=== PATIENT | female | born 1980 | race American Indian/Alaskan Native ===

== ENCOUNTER 2017-02-04 09:56 | Inpatient (IN) | payer MEDICAID ==
--- NOTE | 2017-02-03 14:01 | History and Physical Report ---
History of Present Illness Date of examination: 01/29/17 Date of admission: 02/04/17 Chief complaint: c/s and tl History of present illness: Pt presents for repeat c/s with TL. EDC Calculations LMP: 02/11/2017 EDC Confirmation: 02/11/2017 Gestational Age: 7 1/7 weeks Past History : 4 Term Births: 2 Premature Births: 0 Living Children: 2 Para: 2 Mult. Births: 0 Prev : 2 Prev. attempt? 0 Aborta: 1 Elect. Ab: 0 Spont. Ab: 0 Ectopics: 1 # 1 Delivery date: 2004 Weeks Gestation: 41+ labor: no Delivery type: Delivery location: [place] Sex: Male weight: 6# Comments: distress # 2 Delivery date: 2005 Delivery type: ectopic Comments: ruptured ectopic # 3 Delivery date: 2009 Weeks Gestation: 39 Delivery type: Sex: Male weight: 6# Comments: scheduled repeat Risk Factors: Smoked Tobacco Use: Never smoker Smokeless Tobacco Use: Never Passive smoke exposure: no Drug use: no HIV high-risk behavior: no Caffeine use: 1 drinks per day Alcohol use: no Exercise: no Seatbelt use: 100 % Family History Risk Factors: Family History of TX in females < 65 years old: no Family History of TX in males < 55 years old: no Dietary Counseling: pn yes Past Medical History: chronic htn - no meds at this time ( [facility]) Past Surgical History: c/s x 2 ectopic Past Medical History 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 of genital herpes: no Partner hx. of genital herpes: no Rash, Viral, or Febrile illness since last LMP? no Varicella/Chicken Pox Status: Previous Disease TB Risk: no Genetic History ADVANCED MATERNAL AGE Congenital Heart Defect: Mom: no Dad: no Aly Disease: Mom: no Dad: no Thalassemia Mom: no Dad: no Neural Tube Defect Mom: no Dad: no Down's Syndrome Mom: no Dad: no Ladarius-Sachs Mom: no Dad: no Sickle Cell Disease/Trait Mom: yes Dad: no Comments: sister with trait Hemophilia Mom: no Dad: no Muscular Dystrophy Mom: no Dad: no Cystic Fibrosis Mom: no Dad: no Mony Chorea Mom: no Dad: no Mental Retardation Mom: no Dad: no Fragile X Mom: no Dad: no Other Genetic/Chromosomal Disorder Mom: no Dad: no Child w/other defect Mom: no Dad: no Enviromental Exposures Xray Exposure: no Medication, drug, or alcohol use since LMP: no Chemical/Other Exposure: no Exposure to Cat Liter: no Hx of Parvovirus (Fifth Disease): no Occupational Exposure to Children: none Active Medications (reviewed today): ZYRTEC ALLERGY TABS (CETIRIZINE HCL TABS) Past History Past Medical History: hypertension Past Surgical History: section (x2) 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 Negative: distention, tenderness, guarding Genitourinary (Female): Positive: other (deferred) Extremities: Positive: edema (2+b/l dependent) Deep Tendon Reflex Grade: Normal +2 - Obstetrical FHR: auscultation normal Results All other labs normal. Assessment and Plan - Patient Problems (1) 39 weeks gestation of Status: Acute (2) Previous delivery affecting Status: Acute Plan to address problem: -admit and prep for c/s with TL -consents signed and given to pt (3) Hypertension affecting in third trimester Status: Acute (4) Encounter for sterilization Status: Acute Plan to address problem: -risk/benefits/ alternatives were d/w pt and questions were addressed and answered. -consent signed and placed on the chart.
[~2017-02-04 09:56] MED LIST: ANCEF/STERILE WATER 2 GM/20 ML 2 GM/20 ML SYRINGE IV NR; BICITRA PO ONE; EMLA TP PRN; LACTATED RINGERS 1,000 ML IV SCH; PEPCID IV NR; PITOCin/NS 20 UNIT/1000ML DRIP 20 UNITS/1,000 ML BAG IV SCH; REGLAN IV ONE
[2017-02-04] MEDS ORDERED: LACTATED RINGERS 2,000 ML ONE (11:12)
[2017-02-04 11:30] LABS: Basophils % (Auto) 0.8 % (0.0-1.8); Eosinophils % (Auto) 0.5 % (0.0-4.3); Hematocrit 29.7 % (30.3-42.9); Hemoglobin 9.9 gm/dl (10.1-14.3); Mean Corpuscular HGB Conc 33 % (30-34); Mean Corpuscular Hemoglobin 28 pg (28-32); Mean Corpuscular Volume 83 fl (79-97); Platelet Count 240 K/mm3 (140-440); Red Blood Count 3.57 M/mm3 (3.65-5.03); Red Cell Distribution Width 16.2 % (13.2-15.2); White Blood Count 10.1 K/mm3 (4.5-11.0)
[2017-02-04] MEDS ORDERED: PITOCin/NS 20 UNIT/1000ML DRIP 20,000 MILLIUNITS/1,000 ML BAG IV ONE (11:39)
[2017-02-04] MEDS ORDERED: ZOFRAN IV PRN (11:42)
[2017-02-04] MEDS ORDERED: NARCAN 0.4 MG/1 ML IV PRN ×2 (11:42→14:08)
[2017-02-04] MEDS ORDERED: DILAUDID IV PRN (11:42)
--- NOTE | 2017-02-04 11:42 | Anesthesia Day of Surgery ---
Anesthesia Day of Surgery - Day of Surgery Patient Examined: Yes Patient H&P Reviewed: Yes Patient is NPO: Yes Beta Blockers: Yes
--- NOTE | 2017-02-04 11:42 | Anesthesia Consultation ---
Anesthesia Consult and Med Hx Date of service: 02/04/17 - Airway Anesthetic Teeth Evaluation: Good ROM Head & Neck: Adequate Mental/Hyoid Distance: Adequate Mallampati Class: Class II Intubation Access Assessment: Probably Good - Pre-Operative Health Status ASA Pre-Surgery Classification: ASA3 Proposed Anesthetic Plan: Epidural, Spinal - Pulmonary Hx Asthma: No - Cardiovascular System Hx Hypertension: Yes (PRESENTLY) - Central Nervous System Hx Seizures: No Hx Psychiatric Problems: No - Endocrine Hx Renal Disease: No Hx Hypothyroidism: No Hx Hyperthyroidism: No - Hematic Hx Anemia: Yes (TAKES IRON) Hx Sickle Cell Disease: No - Other Systems Hx Alcohol Use: No Hx Obesity: Yes (BMI 46.2)
[2017-02-04] MEDS ORDERED: TORADOL IV PRN (11:43)
[2017-02-04] MEDS ORDERED: SODIUM CHLORIDE FLUSH SYRINGE 10 ML IV NR (12:00)
[2017-02-04] MEDS ORDERED: MORPHINE ONE (12:03)
[2017-02-04] MEDS ORDERED: NACL 0.9% 1000 ML 1,000 ML ONE (12:48)
[2017-02-04] MEDS ORDERED: NEO SYNEPHRINE/NS Syringe(OR USE) IV ONE (13:00)
--- NOTE | 2017-02-04 14:07 | Operative Report ---
Operative Report Operative Report: Date of procedure: 02/04/2017 Pre-operative diagnosis: 39 weeks gestation Hypertension Obesity Desires sterilization Previous section 2 Previous right ectopic with salpingectomy Post-operative diagnosis: Same Procedure name(s): Repeat low transverse section via Pfannenstiel skin incision Left tubal ligation via modified Rochelle method Surgeon: Dr. Montoya Tank Welder: Certified surgical scrub assistant to the vice president Anesthesia: Spinal epidural EBL: 700 mL Urine output: 100 mL of clear urine at end of the procedure Fluids: 2100 mL Findings: Liveborn male infant weight 7 lbs. 6 oz. Apgars of 8 and 9 at one and 5 minutes. Evidence of right salpingectomy Normal ovaries bilaterally Normal left fallopian tube Adhesions of the anterior rectus muscle to the anterior rectus fascia Indications: Patient presents for scheduled repeat section and desired sterilization. All risks benefits and alternatives were discussed with the patient. Consents were signed and placed on the chart. Procedure: Patient was taking to the operating room. Patient was then prepped and draped in sterile fashion after anesthesia was found to be adequate. A low transverse skin incision was made with the scalpel through previous incisional scar and carried down to the underlying layer of fascia with the Bovie. The fascia was then incised in the midline and this incision was extended bilaterally with the Bovie. The superior aspect of the fascia was grasped with Svetlana clamps tented upward and dissected off of the anterior rectus muscles with the scalpel. In similar fashion the inferior aspect of the fascia was grasped with Svetlana clamps tented upward and dissected off of the anterior rectus muscles. The rectus muscles were then bluntly divided in the midline. The peritoneum was identified and entered into sharply. The Montrell retractor was placed. The bladder blade was placed. A lower transverse uterine incision was made with the scalpel and extended bilaterally with the bandage scissors. Artificial rupture of membranes was performed yielding clear amniotic fluid. The infant's head was then delivered atraumatically. The anterior shoulder and rest of delivered without difficulty. The umbilical cord was clamped x2. The cord was cut. The was then placed in sterile bassinet. The cord blood was not collected. The placenta was manually extracted in its entirety. The uterus was exteriorized and cleared of all clots and debris. The uterine incision was closed using 0 Vicryl in a running locking fashion. Several [id number] sutures were used along the incision line to secure excellent hemostasis. Tisseel was placed on incision as well. Interceed was placed after irrigation. Attention was then turned to the fallopian tubes. Modified Rochelle tubal ligation was performed on the left fallopian tube. Excellent hemostasis was noted. Right fallopian tube was not present. The posterior cul-de-sac was copiously irrigated. The uterus was returned to the abdomen. The gutters were also irrigated. The anterior rectus muscles were reapproximated using 3-0 Vicryl. The anterior rectus fascia was reapproximated using 0 Vicryl in a running fashion. The subcuticular fat was reapproximated using 2-0 Vicryl in a running fashion. The skin was reapproximated with 4-0 Monocryl in a subcutaneous stitch. The patient tolerated the procedure well. Sponge lap and needle counts were all correct x3. Patient was taken to the recovery room awake and in stable condition.
[2017-02-04] MEDS ORDERED: LANSINOH TP PRN (14:08)
[2017-02-04] MEDS ORDERED: TUCKS PAD TP PRN (14:08)
[2017-02-04] MEDS ORDERED: PITOCin/NS 20 UNIT/1000ML DRIP 20 UNITS/1,000 ML BAG IV SCH (15:00)
[2017-02-04] MEDS: NORMODYNE PO SCH (15:27)
[2017-02-04] MEDS ORDERED: NORMODYNE PO SCH (16:00)
[2017-02-04] MEDS: BENADRYL IV PRN (18:00)
[2017-02-04] MEDS: LACTATED RINGERS 1,000 ML IV SCH (21:00)
[2017-02-04] MEDS: ANCEF/NS 1 GM/50 ML 1 GM/50 ML BAG IV SCH (22:58)
[2017-02-05 01:33] LABS: Hematocrit 27.1 % (30.3-42.9); Hemoglobin 8.7 gm/dl (10.1-14.3)
[2017-02-05] MEDS: BENADRYL IV PRN (03:34)
[2017-02-05] MEDS: NORMODYNE PO SCH (03:42)
[2017-02-05] MEDS ORDERED: BOOSTRIX IM ONE (06:00)
[2017-02-05] MEDS: LACTATED RINGERS 1,000 ML IV SCH (06:08)
[2017-02-05] MEDS: ANCEF/NS 1 GM/50 ML 1 GM/50 ML BAG IV SCH (06:12)
--- NOTE | 2017-02-05 08:15 | Progress Note ---
Assessment and Plan Patient doing well, no complaints this morning. without concern, lochia scant, H&H 8.7/27.1 (preexisting anemia, asymptomatic), AF, b/p mostly normal since delivery with one outlier 143/91. denies PEREZ, visual changes or epigastric pain. Will continue to monitor. Continue postop pathway. - Patient Problems (1) delivery delivered Current Visit: Yes Status: Acute (2) Anemia, iron deficiency Current Visit: Yes Status: Acute Qualifiers: Iron deficiency anemia type: inadequate dietary iron intake Qualified Code( s): D50.8 - Other iron deficiency anemias Plan to address problem: FE BID (3) Hypertension affecting in third trimester Current Visit: Yes Status: Acute Subjective - Subjective Date of service: 02/05/17 Principal diagnosis: postop day #1 s/p repeat c/s Patient reports: appetite normal, voiding normally, pain well controlled, ambulating normally, no dizzy ambulation, no nauseated [place]: doing well, nursing well Objective - Vital Signs Latest vital signs: Vital Signs Temp Pulse Resp BP 02/05/17 04:15 98.0 F 100 H 20 122/76 02/05/17 03:42 101 H 143/91 02/05/17 00:00 98.2 F 102 H 20 110/76 02/04/17 20:00 98.6 F 101 H 20 112/80 02/04/17 17:40 98 F 100 H 20 132/89 02/04/17 17:05 98.6 F 101 H 20 162/90 02/04/17 15:27 96 H 156/104 02/04/17 10:26 98.8 F 93 H 20 151/100 Intake and Output 02/04/17 02/05/17 02/05/17 22:59 06:59 14:59 Intake Total 500 2040 Output Total 700 400 Balance -200 1640 Intake: IV 500 1800 ANCEF/NS 1 GM/50 ML 1 gm 50 In 50 ml @ 100 mls/hr IV Q8H KEO Rx#:[id number] Lactated Ringers 1,000 ml 250 1750 @ 125 mls/hr IV DIRECT KEO Rx#:[id number] PITOCin/NS 20 UNIT/1000ML 250 DRIP 20 units In 1,000 ml @ 250 mls/hr IV DIRECT KEO Rx#:[id number] Oral 240 Output: Urine 700 400 Indwelling Catheter 200 400 Other: Total, Intake Amount 240 Total, Output Amount 200 400 - Exam Breasts: Present: normal Cardiovascular: Present: Regular rate Lungs: Present: Clear to auscultation, Normal air movement Abdomen: Present: normal appearance, soft Vulva: both: normal Uterus: Present: normal, firm, fundal height at umbilicus Extremities: Present: normal Deep Tendon Reflex Grade: Normal +2 Incision: Present: normal, intact, other (steristrips wet with blood, no active bleeding noted. Will replace steristrips and watch) - Labs Labs: Abnormal lab results 02/04/17 02/05/17 Range/Units 11:00 01:17 RBC 3.57 L (3.65-5.03) M/mm3 Hgb 9.9 L 8.7 L (10.1-14.3) gm/dl Hct 29.7 L 27.1 L (30.3-42.9) % RDW 16.2 H (13.2-15.2) % Seg Neutrophils % 77.5 H (40.0-70.0) % Seg Neutrophils # 7.8 H (1.8-7.7) K/mm3
--- NOTE | 2017-02-05 09:44 | Progress Note ---
Subjective Date of service: 02/05/17 Principal diagnosis: postop day #1 s/p repeat c/s Interval history: Patient seen post-op day 1, satisfied with CSE for , ambulating, in moderate pain of 6 out 10, using oral meds ( Objective - Constitutional Vitals: Vital Signs - 12hr 02/05/17 02/05/17 02/05/17 00:00 03:42 04:15 Temperature 98.2 F 98.0 F Pulse Rate 102 H 101 H 100 H Respiratory 20 20 Rate Blood Pressure 110/76 143/91 122/76 02/05/17 08:00 Temperature 98.5 F Pulse Rate 95 H Respiratory 20 Rate Blood Pressure 125/74 - Labs CBC & Chem 7: 02/05/17 01:17 Labs: Abnormal lab results 02/04/17 02/05/17 Range/Units 11:00 01:17 RBC 3.57 L (3.65-5.03) M/mm3 Hgb 9.9 L 8.7 L (10.1-14.3) gm/dl Hct 29.7 L 27.1 L (30.3-42.9) % RDW 16.2 H (13.2-15.2) % Seg Neutrophils % 77.5 H (40.0-70.0) % Seg Neutrophils # 7.8 H (1.8-7.7) K/mm3
[2017-02-05] MEDS: FEOSOL PO SCH ×2 (15:08→22:19)
[2017-02-05] MEDS: COLACE PO SCH ×3 (15:08→22:19)
[2017-02-05] MEDS: MOTRIN PO PRN ×2 (15:09→22:19)
[2017-02-05] MEDS: NORCO 5/325 PO PRN ×2 (15:10→22:19)
[2017-02-06] MEDS: NORMODYNE PO SCH (04:38)
--- NOTE | 2017-02-06 08:57 | Discharge Summary ---
Providers - Providers Date of Admission: 02/04/17 09:56 Date of discharge: 02/06/17 (pt agrees with d/c) Attending physician: ANNELIESE CAMERON Primary care physician: ANNELIESE CAMERON Hospitalization Reason for admission: section Delivery: Procedure: bilateral tubal ligation, repeat low transverse Episiotomy: none Laceration: none Incision: normal, dry, intact Other procedures: none Discharge diagnosis: IUP at term delivered [place] baby: male Hospital course: uncomplicated section with tubal Pt resting no c/o voiced VSS with one outlier BP of 140/90 repeat 140/88 Pt requesting to be d/c Will monitor now and if stable d/c this PM Pt is aware of BPs are not stable or rise will hold until tomorrow. FF below umb Lochia scant Incision D&I H&H 02/07 Drop r/t blood loss from surgery Pt is asymptomatic Doing well s/p c/s P: d/c later today with instructions Call with PEREZ, blurred vision, chest pain . RX provided. Condition at discharge: Good Disposition: DC-01 TO HOME OR SELFCARE - Discharge Diagnoses (1) delivery delivered Status: Acute Comment: rto 1 week postop care and BP check Plan - Discharge Medications Prescriptions: Docusate Sodium [Colace] 100 mg PO BID PRN #30 capsule PRN Reason: Constipation Ibuprofen [Motrin 800 MG tab] 800 mg PO Q8HR PRN #30 tablet PRN Reason: Pain Labetalol [Normodyne TAB] 200 mg PO BID #60 tablet Lidocain2.5%/Prilocai2.5% [Emla] 2 gm TP ONCE #1 tube oxyCODONE /ACETAMINOPHEN [Percocet 5/325] 1 tab PO Q4HR #30 tab - Provider Discharge Summary Activity: routine, no sex for 6 weeks, no heavy lifting 4 weeks, no strenuous exercise Diet: routine Instructions: other (NO SALT) Additional instructions: [] Smoking cessation referral if applicable(refer to patient education folder for contact #) [] Refer to [facility] Booklet Call your doctor immediately for: * Fever > 100.5 * Heavy vaginal bleeding ( >1 pad per hour) * Severe persistent headache * Shortness of breath * Reddened, hot, painful area to leg or breast * Drainage or odor from incision. * Keep incision clean and dry at all times and follow doctor's instructions regarding bathing/showering - Follow up plan Follow up: ANNELIESE CAMERON MD [Primary Care Provider] - 7 Days (Congratulations! Please call [phone] to schedule your postoperative visit in 1 week and your son's circumcision in 1 week. Bring the EMLA cream with you to his visit. Take medication as prescribed. Call with headache not relieved with Tylenol, blurred vision, chest pain. Call with any concerns.)
[2017-02-06] MEDS: MOTRIN PO PRN (10:22)
[2017-02-06] MEDS: COLACE PO SCH (10:22)
[2017-02-06] MEDS: FEOSOL PO SCH (10:22)
[2017-02-06] MEDS: NORCO 5/325 PO PRN (10:24)
[2017-02-06] MEDS ORDERED: NORMODYNE PO SCH (12:00)
[2017-02-06 14:22] VITALS: BP 136/82
== END 2017-02-06 16:30 | disposition home or self-care (01) | DRG 765 ==
LOC: APU 09:56 → OB 16:40
PROVIDERS: ADMIT Obstetrics & Gynecology; ATTEND Obstetrics & Gynecology
PROC: 10D00Z1 Extraction of Products of Conception, Low, Open Approach (ICD-10-PCS; principal; 2017-02-04)
PROC: 0UB60ZZ Excision of Left Fallopian Tube, Open Approach (ICD-10-PCS; 2017-02-04)
DX: O34.211 Maternal care for low transverse scar from previous cesarean delivery (principal); O99.214 Obesity complicating childbirth; E66.9 Obesity, unspecified; O16.4 Unspecified maternal hypertension, complicating childbirth; Z68.42 Body mass index [BMI] 45.0-49.9, adult; Z3A.39 39 weeks gestation of pregnancy; Z37.0 Single live birth; O99.02 Anemia complicating childbirth; D50.8 Other iron deficiency anemias; Z30.2 Encounter for sterilization
CPT/HCPCS: 36415; 85014; 85018; 85025; 86850; 86900; 86901; 88302; 88307; 99211; C9250; G0463; J0690; J1200; J2270; J2370; J2405; J2590; J2765; J7030; J7120